=== PATIENT | male | born 1975 | race African-American/Black ===

== ENCOUNTER 2016-12-04 21:13 | Emergency (ER) | payer OTHER ==
[~2016-12-04] VITALS: Ht 172.7 cm; Wt 88.5 kg
[2016-12-04 21:50] VITALS: BP 127/80
--- NOTE | 2016-12-04 23:36 | NUR ---
Patient to OF.
--- NOTE | 2016-12-04 23:50 | NUR ---
PT BIB FAMILY C/O RT SIDE BODY PAIN S/P LIFTING PT'S AT THIS WORK AND DRY COUGH X4 DAYS. PT DENIES ANY MEDICAL HX. PT DENIES N/V/D; SKIN IS INTACT, PINK/WARM/DRY; AAOX4, PERRL, WITH EVEN AND STEADY GAIT; LUNGS CLEAR BL, BREATHING UNLABORED; HR EVEN AND REGULAR, BL PERIPHERAL PULSES PRESENT; BS ACTIVE X4, NO TENDERNESS TO PALPATION. PT DENIES ANY FEVER, CP, SOB, AT THIS TIME; PT STATES 7/10 PAIN AT THIS TIME; VSS; PATIENT POSITIONED FOR COMFORT; HOB ELEVATED; BEDRAILS UP X2; BED DOWN.
--- NOTE | 2016-12-05 00:20 | NUR ---
Dr. Nuñez evaluating patient.
[2016-12-05 00:45] VITALS: BP 122/72
--- NOTE | 2016-12-05 00:51 | NUR ---
Patient discharged with v/s stable. Written and verbal after care instructions given and explained. Patient alert, oriented and verbalized understanding of instructions. Ambulatory with steady gait. All questions addressed prior to discharge. ID band removed. Patient advised to follow up with PMD. Rx of CYCLOBENZAPRINE 10MG PRN,CODEINE PHOSPHATE/GUAIFENESIN 10MG PRN Q4HRS given. Patient educated on indication of medication including possible reaction and side effects. Opportunity to ask questions provided and answered.
== END 2016-12-05 00:51 | disposition home or self-care (01) ==
LOC: MED 21:13
DX: S39.012A Strain of muscle, fascia and tendon of lower back, initial encounter (principal); S46.911A Strain of unspecified muscle, fascia and tendon at shoulder and upper arm level, right arm, initial encounter; J06.9 Acute upper respiratory infection, unspecified; I10 Essential (primary) hypertension; X58.XXXA Exposure to other specified factors, initial encounter; Y93.89 Activity, other specified; Y92.89 Other specified places as the place of occurrence of the external cause; Y99.8 Other external cause status
CPT/HCPCS: 99283